=== PATIENT | male | born 1990 | race African-American/Black ===

== ENCOUNTER 2022-06-28 18:46 | Emergency (ER) | payer MEDICAID ==
[~2022-06-28] VITALS: Ht 182.9 cm; Wt 73.0 kg
[2022-06-28] MEDS: IBUPROFEN 600MG TABLET PO ONE (19:03)
[2022-06-28] MEDS ORDERED: IBUP-2029 MT (20:08)
[2022-06-28 20:58] VITALS: BP 128/85
== END 2022-06-28 20:59 | disposition home or self-care (01) ==
LOC: ER 18:46
DX: S93.402A Sprain of unspecified ligament of left ankle, initial encounter (principal); X58.XXXA Exposure to other specified factors, initial encounter; Y93.89 Activity, other specified; Y92.89 Other specified places as the place of occurrence of the external cause; Y99.8 Other external cause status
CPT/HCPCS: 73610; 73630; 99284; Z7610

== ENCOUNTER 2022-09-25 21:39 | Emergency (ER) | payer MEDICAID ==
[~2022-09-25] VITALS: Ht 188 cm; Wt 82.0 kg
[~2022-09-25 21:39] MED LIST: IBUP-2029 MT
[2022-09-25 21:41] VITALS: BP 138/78
[2022-09-25] MEDS ORDERED: TETANUS, DIPHTHERIA, PERTUSSIS VAC/PF 0.5ML (>10YR OLD) IM ONE (22:00)
[2022-09-25] MEDS ORDERED: ACETAMINOPHEN 500MG TABLET PO ONE (23:00)
[2022-09-26] MEDS ORDERED: IBUP-2029 MT (01:35)
== END 2022-09-26 02:19 | disposition home or self-care (01) ==
LOC: ER 21:39
DX: S09.90XA Unspecified injury of head, initial encounter (principal); R51.9 Headache, unspecified; X58.XXXA Exposure to other specified factors, initial encounter; Y93.89 Activity, other specified; Y92.89 Other specified places as the place of occurrence of the external cause; Y99.8 Other external cause status
CPT/HCPCS: 12001; 70450; 90471; 90715; 99285; Z7610

== ENCOUNTER 2023-04-26 20:47 | Emergency (ER) | payer MEDICAID ==
[~2023-04-26] VITALS: Ht 177.8 cm; Wt 68.5 kg
[2023-04-26 21:42] LABS: CLARITY URINE CLEAR (CLEAR); COLOR URINE YELLOW (YELLOW); GLUCOSE URINE NEGATIVE (NEGATIVE); KETONES URINE NEGATIVE (NEGATIVE); LEUKOCYTE ESTERASE URINE NEGATIVE (NEGATIVE); NITRITE URINE NEGATIVE (NEGATIVE); OCCULT BLOOD URINE NEGATIVE (NEGATIVE); PH URINE 5.5 (4.5-8.0); PROTEIN URINE NEGATIVE (NEGATIVE); SPECIFIC GRAVITY URINE 1.003 (1.005-1.030); UROBILINOGEN URINE 0.2 E.U./dL (0.2-1.0)
[2023-04-26 21:55] LABS: BASOPHILS % 0.8 % (0.0-2.0); EOSINOPHILS % 1.1 % (0.0-5.0); HEMATOCRIT. 35.3 % (42.0-52.0); HEMOGLOBIN. 12.2 g/dL (14.0-18.0); LYMPHOCYTES % 26.2 % (20.0-50.0); MEAN CORPUSCULAR HEMOGLOBIN 31.9 pg (28.0-32.0); MEAN CORPUSCULAR HGB CONC 34.6 g/dL (31.0-37.0); MEAN CORPUSCULAR VOLUME 92.4 fL (80.0-94.0); MEAN PLATELET VOLUME 6.9 fl (7.4-10.4); MONOCYTES % 9.7 % (2.0-8.0); NEUTROPHILS % 62.2 % (40.0-76.0); PLATELET 308 x1000/uL (130-400); RED BLOOD CELL COUNT 3.83 mill/uL (4.7-6.1); RED CELL DISTRIBUTION WIDTH 13.5 % (11.6-14.6); WHITE BLOOD COUNT 5.1 x1000/uL (4.5-11.0)
[2023-04-26 21:56] LABS: *AMPHETAMINES SCREEN URINE NEGATIVE (NEGATIVE); *BARBITURATES SCREEN URINE NEGATIVE (NEGATIVE); *BENZODIAZEPINES SCREEN URINE NEGATIVE (NEGATIVE); *COCAINE SCREEN URINE NEGATIVE (NEGATIVE); CANNABINOID URINE SCREEN PRESUMTIVE POSITIVE (NEGATIVE); ECSTASY MDMA SCREEN URINE NEGATIVE (NEGATIVE); METHADONE URINE SCREEN NEGATIVE (NEGATIVE); OPIATES URINE SCREEN NEGATIVE (NEGATIVE); PHENCYCLIDINE URINE SCREEN NEGATIVE (NEGATIVE)
[2023-04-26 22:00] LABS: CHLORIDE 111 mEq/L (98-107); INDEX HEMOLYSI 1 (1-3); INDEX ICTERIC 1 (1-4); INDEX LIPEMIC 1 (1-3); POTASSIUM 3.7 mEq/L (3.5-5.1); SODIUM 145 mEq/L (136-145)
[2023-04-26 22:07] LABS: ACETAMINOPHEN <2 ug/mL ug/mL (10-30); ALANINE AMINOTRANSFERASE 28 IU/L (13-61); ALBUMIN 3.9 g/dL (3.4-5.0); ASPARTATE AMINOTRANSFERASE 27 IU/L (15-37); BILIRUBIN TOTAL 0.6 mg/dL (0.1-1.0); CALCIUM 8.3 mg/dL (8.5-10.1); CARBON DIOXIDE 24 mEq/L (21-32); CREATININE 0.7 mg/dL (0.6-1.3); GLUCOSE 97 mg/dL (70-105); PROTEIN TOTAL 7.4 g/dL (6.0-8.3); UREA NITROGEN BLOOD 7 mg/dL (7-21)
[2023-04-26 22:18] LABS: ETHANOL BLOOD 283 mg/dL (<10)
[2023-04-26] MEDS ORDERED: MIDAZOLAM HCL 2 MG/2 ML VIAL IM ONE (23:00)
[2023-04-26] MEDS ORDERED: HALOPERIDOL LACTATE 5MG/ML VIAL IM ONE (23:00)
[2023-04-27] MEDS ORDERED: MIDAZOLAM HCL 2 MG/2 ML VIAL IM NR (01:45)
[2023-04-27 02:24] VITALS: O2SAT 99
[2023-04-27 11:36] VITALS: BP 126/81; PULSE 61; RESP 14; TEMP 98.7
== END 2023-04-27 12:46 | disposition home or self-care (01) ==
LOC: ER 20:47
DX: R45.851 Suicidal ideations (principal); H92.01 Otalgia, right ear; F19.90 Other psychoactive substance use, unspecified, uncomplicated
CPT/HCPCS: 80053; 80305; 81003; 80307; 80329; 80320; 85025; 36415; 70450; 96372 ×2; 99285; J1630; Z7610 ×2; J2250; G0480